=== PATIENT | female | born 1995 | race Caucasian/White ===

== ENCOUNTER → 2020-05-18 10:44 | Outpatient (BNVA) | payer OTHER, SELFPAY | PROVIDERS: Family Provider Internal Medicine; PCP Internal Medicine; Visit Provider Nurse Practitioner | DX: Z20.828 Contact with and (suspected) exposure to other viral communicable diseases (principal) | CPT/HCPCS: 87635 ==

== ENCOUNTER → 2020-05-21 12:54 | Outpatient (BNVA) | payer OTHER, SELFPAY | PROVIDERS: Family Provider Internal Medicine; PCP Internal Medicine; Visit Provider Nurse Practitioner Family | DX: Z20.828 Contact with and (suspected) exposure to other viral communicable diseases (principal) | CPT/HCPCS: 87635 ==

== ENCOUNTER → 2020-08-09 14:13 | Outpatient (BNVA) | payer OTHER, SELFPAY | PROVIDERS: Family Provider Internal Medicine; PCP Internal Medicine; Visit Provider Nurse Practitioner Women's Health | DX: N64.3 Galactorrhea not associated with childbirth (principal); N94.4 Primary dysmenorrhea; Z30.09 Encounter for other general counseling and advice on contraception | CPT/HCPCS: 84146; 84439; 84443; 88175 ==

== ENCOUNTER 2020-09-10 09:11 | Outpatient (CLI) | payer OTHER, SELFPAY ==
--- NOTE | 2020-09-10 09:30 | US_ITS ---
WS: [id number] ULTRASOUND BILATERAL BREASTs HISTORY: N64.3 - Galactorrhea not associated with childbirth, clear bilateral nipple discharge. COMPARISON: None available. TECHNIQUE: 2-D and Doppler. There are very mildly prominent ducts in the subareolar region bilaterally. No filling defects or gorge ris within the ducts. These are normal size ducts. No mass or nipple retraction. US/US breast BI limited* [id number] IMPRESSION: BI-RADS: 1-Negative FOLLOW-UP: See Report No abnormality in the areolar region of either breast.
== END 2020-09-10 09:12 | disposition home or self-care (01) ==
LOC: RAD 09:13
PROVIDERS: PCP Internal Medicine; Visit Provider Nurse Practitioner Women's Health
DX: N64.3 Galactorrhea not associated with childbirth (principal)
CPT/HCPCS: 76642

== ENCOUNTER → 2020-12-12 11:20 | Outpatient (BNVA) | payer OTHER, SELFPAY | PROVIDERS: PCP Internal Medicine; Visit Provider Nurse Practitioner Family | DX: Z20.822 Contact with and (suspected) exposure to COVID-19 (principal); J06.9 Acute upper respiratory infection, unspecified | CPT/HCPCS: 87635 ==

== ENCOUNTER → 2021-11-22 18:10 | Outpatient (BNVA) | payer OTHER, SELFPAY | PROVIDERS: PCP Internal Medicine; Visit Provider Registered Nurse Neonatal Intensive Care | DX: J02.9 Acute pharyngitis, unspecified (principal) | CPT/HCPCS: 87880 ==

== ENCOUNTER 2024-01-16 02:36 | Inpatient (IN) | payer SELFPAY ==
[2024-01-16] VITALS (78 sets, daily range): BP systolic 95–149; BP diastolic 44–90; PULSE 68–97; RESP 16–17; TEMP 36.2–37.6; O2SAT 94–100; BMI 35.2
[2024-01-16 01:38] LABS: Bilirubin Urine Negative (Negative); Blood Urine Negative (Negative); Glucose Urine UA Negative (Normal); Ketones Urine Trace (Negative); Leukocyte Esterase Urine Negative (Negative); Nitrate Urine Negative (Negative); Protein Urine 1+ (Negative); Specific Gravity, Urine 1.021 (1.005-1.030); Urine Appearance Clear (CLEAR); Urine Color Yellow (Yellow)
[2024-01-16 01:43] LABS: Hyaline Casts Urine 0.81 /lpf; RBC Urine 0-2 /hpf (0-2); Squamous Epithelial Cell Urine 0-5 /hpf (0-5); WBC Urine 0-5 /hpf (0-5)
[2024-01-16] MEDS: lactated ringers 1,000 ML 999 ML IV (01:59)
[2024-01-16 02:00] LABS: UA Slide Review UA Slide Review Perf
[2024-01-16 02:01] LABS: Bacteria Urine 1+ /hpf; Mucus Urine 3+ /hpf
[2024-01-16 02:35] LABS: Basophils % 0.2 %; Eosinophils % 0.1 %; Hematocrit 33.7 % (36-47); Lymphocytes % 7.3 %; Mean Corpuscular HGB Conc 32.6 g/dL (30-55); Mean Corpuscular Hemoglobin 30.4 pg (27-33); Mean Corpuscular Volume 93.1 fl (85-98); Mean Platelet Volume 9.4 fL (7.4-10.4); Monocytes # 0.8 10^3/uL (0.2-0.9); Monocytes % 5.9 %; Neutrophils # 12.01 10^3/uL (1.8-7.7); Neutrophils % 85.5 %; Nucleated Red Blood Cells % 0 %; Platelet Count 300 10^3/cmm (157-399); Red Blood Count 3.62 10^6/uL (3.85-5.65); Red Cell Distribution Width 15.9 % (12.1-15.1); White Blood Count 14.04 10^3/uL (3.29-11.43)
--- NOTE | 2024-01-16 02:39 | P.ANESASSM_ITS ---
Pre-Anesthetic Assessment Height/Weight: Height 1.63 m Pulse BP 94 149/80 01/16/24 02:33 01/16/24 02:33 Preop Diagnosis: Nonreassuring FHTs Was Beta Gu[place]upe taken within 24 hours: N/A Was Clonidine taken within 24 hours: N/A Social No alcohol and No tobacco Exam alert, oriented x 3, clear to auscultation bilaterally and regular rate & rhythm Airway Submandibular: within normal limits Cervical ROM: within normal limits Mallampati: Class II Dentition: full History/ROS No significant history except as noted and No significant complaints Pulmonary None reported CV/HEM Murmur None reported Hepatic None reported GI None reported Metabolic Morbid Obesity [facility] [place] None reported Neuropsych None reported Anesthetic Plan ASA status: 2 Anesthesia: Anesthesia Evaluation and Regional (specify below) Risk of > 500 ml blood loss (7ml/kg in children): No Medications/Allergies Home Medications Medication Instructions Recorded Confirmed Last Taken Type escitalopram oxalate 5 mg tablet 10 mg PO QDAY 08/09/20 08/19/22 Unknown History ibuprofen 200 mg capsule 200 mg PO Q6H PRN 08/14/21 08/19/22 Unknown History Allergies Allergy/AdvReac Type Severity Reaction Status Date / Time No Known Allergies Allergy Verified 08/19/22 08:35 PFS Anesthesia Medical History Anxiety and depression Is on medication managed by her primary care provider Hiatal hernia Diagnosed at time of endoscopy No pertinent past medical history Denies diabetes, asthma, hypertension, seizures, DVT/PE PCP: Dr. Leon Surgical History [place] teeth extracted (Unknown) Family History Grandmother Diabetes Paternal Hypertension Paternal Ovarian cancer Paternal--dx age 84 Hypercholesteremia Paternal Grandfather Diabetes Paternal Hypertension Paternal Hypercholesteremia Paternal Mother Thyroid cancer dx age 30's Family/Other Breast cancer Maternal Aunt--dx age unknown Denies family history of Colon cancer Heart disease Uterine cancer Stroke Social History Substance/Drug Use: never Data Anesthesia 01/16/24 02:24 Short CBC 01/16/24 Range/Units 02:24 WBC 14.04 H (3.29-11.43) 10^3/uL Hgb 11.00 L (11.27-16.99) g/dL Hct 33.7 L (36-47) % MCV 93.1 (85-98) fl Plt Count 300 (157-399) 10^3/cmm Neut % (Auto) 85.5 % Neut # (Auto) 12.01 H (1.8-7.7) 10^3/uL Urine 01/16/24 Range/Units 01:07 Urine Color Yellow (Yellow) Urine Appearance Clear (CLEAR) Urine pH 6.0 (5-7) Ur Specific [place] 1.021 (1.005-1.030) Urine Protein 1+ A (Negative) Urine Glucose (UA) Negative (Normal) Urine Ketones Trace (Negative) Urine Nitrate Negative (Negative) Urine Bilirubin Negative (Negative) Ur Leukocyte Esterase Negative (Negative) Urine RBC 0-2 (0-2) /hpf Urine WBC 0-5 (0-5) /hpf Cardiac Studies: 2 No Data to Display
[2024-01-16] MEDS: citric acid-sodium citrate 30 mL UDC PO (02:40)
[2024-01-16] MEDS: famotidine 20 mg/2 mL INJ IVP (02:40)
[2024-01-16] MEDS: metoclopramide 5 mg/mL SDV 2 mL 10 MG IVP (02:40)
--- NOTE | 2024-01-16 02:40 | P.HP_ITS ---
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 Shortly after being placed on the monitor the baby was noted to have late decelerations which persisted. Variability was minimal. A bolus of IV fluid and change in position did not change the late decelerations or the variability. As result the decision was made to proceed with a section. Review of Systems 2 General: Reports: 10 or more systems reviewed and unremarkable except in HPI and below Const: Reports: fatigue; Denies: fever(s) Eyes: Denies: change in vision Card: Denies: chest pain Musc: Reports: back pain Jose Rafael/Lymph: Denies: easy bruising Medications/Allergies Home Medications Medication Instructions Recorded Confirmed Last Taken Type escitalopram oxalate 5 mg tablet 10 mg PO QDAY 08/09/20 01/16/24 01/15/24 History 1 tab PO DAILY 01/16/24 01/16/24 01/15/24 History docusate sodium 100 mg capsule 100 mg PO BID #14 caps 01/17/24 Unknown Rx hydrocodone 5 mg-acetaminophen 325 1 tab PO Q6H PRN Moderate To 01/17/24 Unknown Rx mg tablet Severe Pain #28 tabs ibuprofen 800 mg tablet 800 mg PO TID #45 tabs 01/17/24 Unknown Rx Allergies Allergy/AdvReac Type Severity Reaction Status Date / Time No Known Allergies Allergy Verified 01/16/24 08:13 PFSH HAND STRIPPER 2 PFSH: Medical History Anxiety and depression Is on medication managed by her primary care provider No pertinent past medical history Denies diabetes, asthma, hypertension, seizures, DVT/PE PCP: Dr. Leon Hiatal hernia Diagnosed at time of endoscopy Surgical History [place] teeth extracted (Unknown) Family History Grandmother Diabetes Paternal Hypertension Paternal Ovarian cancer Paternal--dx age 84 Hypercholesteremia Paternal Grandfather Diabetes Paternal Hypertension Paternal Hypercholesteremia Paternal Mother Thyroid cancer dx age 30's Family/Other Breast cancer Maternal Aunt--dx age unknown Denies family history of Colon cancer Heart disease Uterine cancer Stroke Social History Substance/Drug Use: never Other Female Reproductive History: Hx Age of Menarche: 12 History History History 2 1 Term Miscarriages/Ectopic Living Children Vitals/I&O/Wt Last Vital Signs Pulse 94 01/16/24 02:33 BP 149/80 01/16/24 02:33 Physical Exam 2 Const: COMMON NORMALS: patient oriented x3 and alert HENMT: COMMON NORMALS: moist oral mucous membranes HEAD & SCALP: normal to inspection Chest: COMMONS NORMALS: normal inspection of the chest Resp: COMMON NORMALS: clear to auscultation bilaterally AUSCULTATION: clear to auscultation bilaterally Cardio: COMMON NORMALS: regular rate and regular rhythm RATE: regular rate RHYTHM: regular rhythm GI: INSPECTION: Yes normal to inspection and Yes other (Gravid) Extremity: COMMON NORMALS: normal to inspection GENERAL: Yes edema (Trace) Neuro: COMMON NORMALS: patient oriented x3, moves all extremities and no sensory deficits noted SENSORIUM/ORIENTATION: Yes alert Psych: COMMON NORMALS: mental status grossly normal Skin: COMMON NORMALS: no rashes or lesions noted GENERAL SKIN EXAM: no rashes or lesions noted Data 01/16/24 14:48 Results Labs OB ([facility]): 2 Blood Type O Positive 01/16/24 Antibody Screen Negative 01/16/24 Hct 29.2 % (36-47) L 01/16/24 Hgb 9.30 g/dL (11.27-16.99) L 01/16/24 Rho(D) Type Rh positive 01/16/24 Plt Count 261 10^3/cmm (157-399) 01/16/24 TSH 1.52 uIU/mL (0.27-4.20) 08/09/20 Free T4 1.29 ng/dL (0.82-1.77) 08/09/20 Pap Smear Interpret See note 08/09/20 Prolactin 14.48 ng/mL (4.8-23.3) 08/09/20 A&P Assessment and plan (1) 37 weeks gestation of : (2) Non-reassuring heart rate with late deceleration: We will proceed with a section. We discussed this with the parents including the risks of bleeding, infection, and damage intra-abdominal organs. They have no further questions and wished to proceed. Attestations 2 Medical Necessity Statement*: I anticipate routine and post care Coding Level of Care Code Acute Code for Chg Fwd Diagnoses 37 weeks gestation of Z3A.37 Non-reassuring heart rate with late deceleration O36.8390
[2024-01-16] MEDS: ceFAZolin 2,000 mg SDV 2000 MG IVP (02:46)
[2024-01-16] MEDS: BUPivacaine 0.5% INJ 30 mL INJECTION (03:07)
--- NOTE | 2024-01-16 04:10 | P.OP_ITS ---
Operative Report Date of procedure: January 16, 2024 Pre-op diagnosis: 1. 48-year-old 1 at 37 weeks estimated gestational age presenting with abdominal pain 2. heart tones demonstrating recurrent late decelerations Post-op diagnosis: 1. Multiple large formed clots noted within the uterus and adhered to the placenta consistent with abruption Procedure done: Lower transverse section Specimens removed/disposition: 1. Female infant with Apgars of 2 5 and 7 with a weight of 6 pounds 7 ounces 2. Placenta with a three-vessel cord delivered intact Surgeon: Nico Anthony MD Estimated blood loss (mL): 600 Complications: None Procedure: The patient was brought back to the operating room where she was prepped and draped in usual sterile fashion. Anesthesia was found to be adequate. 10 cc of bupivacaine were used to Bryne sties area of incision. A lower transverse skin incision was then made with a #10 blade. I then dissected down to the underlying subcutaneous tissue until arriving at the prerectal fascia. The fascia was then nicked with the scalpel bilaterally. The fascial incisions were then carried laterally with Lo scissors. Attention was then turned to the superior aspect of the incision which was grasped with kochers and tented up away from the underlying rectus abdominis muscles. The muscles were then disse cted away from the fascia manually, and later with Lo scissors. Attention was then turned to the inferior aspect of the incision, and the fascia was dissected away from the underlying muscle in similar fashion. The rectus abdominis muscles were then spread manually. The peritoneum was entered manually. Excellent visualization of the uterus was noted. A lower transverse uterine incision was then made with a #10 blade. Upon arriving at the intrauterine cavity, the uterine incision was then extended manually. The infant was noted to be in vertex position. The baby was delivered without d ifficulty. There was no meconium. Several large organized clots were noted. There was no nuchal cord. The cord was immediately cut and clamped. The baby was then handed to Dr. Oliver and waiting nurse. The placenta was removed intact and organized clot was noted to be adhered to the placenta. The uterus was externalized. The intrauterine cavity was cleansed of any remaining debris. The uterine incision was reapproximated in 2 layers. The first layer was performed with 0 Vicryl in a running locked stitch. The second layer was an imbricating stitch also using 0 Vicryl. The uterus was replaced into the abdomen. The peritoneum was then irrigated with warm saline. I reexamined the uterine incision and found it to be hemostatic. The rectus abdominis muscles were then reapproximated using 0 Vicryl in a running stitch. The fascia was then reapproximated using 0 Vicryl in running stitch. The subcutaneous tissue was then reapproximated using 0 Vicryl in a running stitch. The skin was reapproximated using moni. A sterile dressing was placed. All counts were correct x2. Both the mother and baby were in stable condition.
[2024-01-16] MEDS: ferrous sulfate EC 325 mg Tablet PO ×2 (09:30→17:17)
[2024-01-16] MEDS: docusate sodium 100 mg Capsule PO ×2 (09:30→17:17)
[2024-01-16] MEDS: PRENATAL VIT NO.130/IRON/FOLIC 1 EACH TABLET PO (09:30)
[2024-01-16] MEDS: ketorolac 30 mg/mL INJ IVP ×3 (11:15→23:41)
[2024-01-16 14:54] LABS: Hematocrit 29.2 % (36-47); Mean Corpuscular HGB Conc 31.8 g/dL (30-55); Mean Corpuscular Hemoglobin 29.8 pg (27-33); Mean Corpuscular Volume 93.6 fl (85-98); Mean Platelet Volume 9.3 fL (7.4-10.4); Platelet Count 261 10^3/cmm (157-399); Red Blood Count 3.12 10^6/uL (3.85-5.65); Red Cell Distribution Width 15.9 % (12.1-15.1); White Blood Count 10.98 10^3/uL (3.29-11.43)
[2024-01-17 04:00] VITALS: BP 114/72; PULSE 83; RESP 18; TEMP 36.9
[2024-01-17] MEDS: docusate sodium 100 mg Capsule PO (09:57)
[2024-01-17] MEDS: escitalopram 10 mg Tablet PO (09:57)
[2024-01-17] MEDS: PRENATAL VIT NO.130/IRON/FOLIC 1 EACH TABLET PO (09:57)
[2024-01-17] MEDS: ferrous sulfate EC 325 mg Tablet PO (09:58)
[2024-01-17] MEDS: ibuprofen 800 mg tablet PO ×2 (09:58→14:23)
--- NOTE | 2024-01-17 09:58 | P.DS_ITS ---
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 Shortly after being placed on the monitor her baby was noted to have late decelerations. This persisted despite appropriate interventions. A section was performed. Organized clots within the uterus and adherent to the placenta indicated a probable abruption. Her course was unremarkable. Her bleeding was within normal limits. Her pain was well- controlled. She breast-fed well. Information Peripartum Data: Infant Delivery Method: Physical Exam Narrative: She is in no acute distress Lungs are clear auscultation bilaterally Her heart has a regular rate and rhythm Her fundus is below the umbilicus and firm Her dressing is clean, dry and intact Her extremities have trace edema Urinary Catheter Management: Vinson Latex: Cath Placed During This Visit: yes, but has since been removed by the nurse Reason for Continuing Indwelling Catheter: Perioperative Use in Selected Surgeries Urinary Catheter Date of Insertion: 01/16/24 Urinary Catheter Time of Insertion: 03:05 Date Urinary Catheter Removed: 01/16/24 Time Urinary Catheter Discontinued: 14:32 History History History 1 Term Miscarriages/Ectopic Living Children Discharge Data Studies Completed and Pending Laboratory Results WBC 10.98 10^3/uL (3.29-11.43) 01/16/24 14:48 RBC 3.12 10^6/uL (3.85-5.65) L 01/16/24 14:48 Hgb 9.30 g/dL (11.27-16.99) L 01/16/24 14:48 Hct 29.2 % (36-47) L 01/16/24 14:48 MCV 93.6 fl (85-98) 01/16/24 14:48 MCH 29.8 pg (27-33) 01/16/24 14:48 MCHC 31.8 g/dL (30-55) 01/16/24 14:48 RDW 15.9 % (12.1-15.1) H 01/16/24 14:48 Plt Count 261 10^3/cmm (157-399) 01/16/24 14:48 MPV 9.3 fL (7.4-10.4) 01/16/24 14:48 Neut % (Auto) 85.5 % 01/16/24 02:24 Lymph % (Auto) 7.3 % 01/16/24 02:24 [place] % (Auto) 5.9 % 01/16/24 02:24 Eos % (Auto) 0.1 % 01/16/24 02:24 Baso % (Auto) 0.2 % 01/16/24 02:24 Neut # (Auto) 12.01 10^3/uL (1.8-7.7) H 01/16/24 02:24 Lymph # (Auto) 1.0 10^3/uL (0.8-4.8) 01/16/24 02:24 [place] # (Auto) 0.8 10^3/uL (0.2-0.9) 01/16/24 02:24 Eos # (Auto) 0.0 10^3/uL (0.0-0.8) 01/16/24 02:24 Baso # (Auto) 0.0 10^3/uL (0.0-0.1) 01/16/24 02:24 Nucleated RBC % (auto) 0 % 01/16/24 02:24 Nucleated RBCs # 0.0 /100WBC 01/16/24 02:24 Urine Color Yellow (Yellow) 01/16/24 01:07 Urine Appearance Clear (CLEAR) 01/16/24 01:07 Urine pH 6.0 (5-7) 01/16/24 01:07 Ur Specific [place] 1.021 (1.005-1.030) 01/16/24 01:07 Urine Protein 1+ (Negative) A 01/16/24 01:07 Urine Glucose (UA) Negative (Normal) 01/16/24 01:07 Urine Ketones Trace (Negative) 01/16/24 01:07 Urine Blood Negative (Negative) 01/16/24 01:07 Urine Nitrate Negative (Negative) 01/16/24 01:07 Urine Bilirubin Negative (Negative) 01/16/24 01:07 Urine Urobilinogen 1.0 mg/dL (Negative) 01/16/24 01:07 Ur Leukocyte Esterase Negative (Negative) 01/16/24 01:07 Urine RBC 0-2 /hpf (0-2) 01/16/24 01:07 Urine WBC 0-5 /hpf (0-5) 01/16/24 01:07 Ur Squamous Epith Cells 0-5 /hpf (0-5) 01/16/24 01:07 Amorphous Sediment Not Reportable 01/16/24 01:07 Urine Bacteria 1+ /hpf (NONE) H 01/16/24 01:07 Hyaline Casts 0.81 /lpf 01/16/24 01:07 Urine Mucus 3+ /hpf 01/16/24 01:07 Blood Type O Positive 01/16/24 02:24 Rho(D) Type Rh positive 01/16/24 02:24 Antibody Screen Negative 01/16/24 02:24 Vitals Last Vital Signs Temp 98.4 F 01/17/24 04:00 Pulse 83 01/17/24 04:00 Resp 18 01/17/24 04:00 BP 114/72 01/17/24 04:00 Pulse Ox 94 01/16/24 22:55 O2 Del Method Room Air 01/16/24 22:55 Results Labs OB ([facility]): Blood Type O Positive 01/16/24 Antibody Screen Negative 01/16/24 Hct 29.2 % (36-47) L 01/16/24 Hgb 9.30 g/dL (11.27-16.99) L 01/16/24 Rho(D) Type Rh positive 01/16/24 Plt Count 261 10^3/cmm (157-399) 01/16/24 TSH 1.52 uIU/mL (0.27-4.20) 08/09/20 Free T4 1.29 ng/dL (0.82-1.77) 08/09/20 Pap Smear Interpret See note 08/09/20 Prolactin 14.48 ng/mL (4.8-23.3) 08/09/20 Discharge Plan Discharge Patient Disposition: Home Condition: Stable Prescriptions: New ibuprofen 800 mg Tablet 800 mg PO TID Qty: 45 0RF hydrocodone-acetaminophen 5-325 mg Tablet 1 tab PO Q6H PRN (Reason: Moderate To Severe Pain) Qty: 28 0RF docusate sodium 100 mg Capsule 100 mg PO BID Qty: 14 0RF Continued escitalopram oxalate 5 mg tablet 10 mg PO QDAY 1 tab PO DAILY Discontinued Nelson Oil 1 tab PO DAILY Discharge Orders: Discharge Order (Routine); Ordered 01/17/24 Ordered By: Nico Anthony Referrals: Nico Anthony MD [Physician] - 01/21/24 (* Please call first thing Thursday to make your post op appointment and your 6 week post appointment. Your post op appointment needs to occur on 01/21/2024 the same day as baby's appointment.) Discharge Diet: Usual diet Discharge Activity: Limit activity as instructed Patient Instructions: Depression (DC), Bleeding (DC), Preeclampsia and Eclampsia After Delivery (GEN), Hemorrhage (DC), OB - Raj/Lucio, OB Discharge Report, OB Food/Drug Interaction Guide, Opioid Safety, OB Home Care, OB Proud Parent Packet Discharge Attestations FITNESS CENTRE MANAGER Time Spent in Discharge Care*: less than 30 min Coding Level of Care Code Acute Code for Chg Fwd
[2024-01-17 10:00] VITALS: BP 113/72; PULSE 86; PULSE 91; RESP 18; RESP 20; TEMP 36.6; TEMP 36.9; O2SAT 98
[2024-01-17 10:38] VITALS: BP 113/72; PULSE 80; PULSE 86; RESP 18; TEMP 36.9; O2SAT 98
[2024-01-17 14:49] VITALS: BP 125/78; PULSE 90; RESP 16; TEMP 36.5; O2SAT 98
== END 2024-01-17 14:49 | disposition home or self-care (01) | DRG 786 ==
LOC: OPOB 02:37 → OBGYN 02:37
PROVIDERS: Admitting Provider Family Medicine; PCP Internal Medicine; Visit Provider Family Medicine
PROC: 10D00Z1 Extraction of Products of Conception, Low, Open Approach (ICD-10-PCS; CPT 59514; principal; 2024-01-16 02:50)
DX: O76 Abnormality in fetal heart rate and rhythm complicating labor and delivery (principal); O45.93 Premature separation of placenta, unspecified, third trimester; O99.344 Other mental disorders complicating childbirth; F99 Mental disorder, not otherwise specified; Z3A.37 37 weeks gestation of pregnancy; Z37.0 Single live birth; F41.9 Anxiety disorder, unspecified; F32.A Depression, unspecified
CPT/HCPCS: 36415; 51702; 59025; 59409; 81001; 85025; 85027; 86850; 86900; 96374; 96376; 99211; J0690; J1200; J1885; J2274; J2765; J3010; J3490; J7120